=== PATIENT | male | born 1980 | race African-American/Black ===

== ENCOUNTER 2017-09-26 18:03 | Inpatient (IN) | END 2017-09-28 18:51 | disposition home or self-care (01) | DRG 639 ==

== ENCOUNTER 2018-11-04 22:30 | Emergency (ER) | payer OTHER ==
[~2018-11-04] VITALS: Ht 182.9 cm; Wt 97.7 kg
[~2018-11-04 22:30] MED LIST: FENO48TA4 PO; GLIP5TAB13 PO; LANT3I SC
[2018-11-04 22:41] VITALS: Ht 182.9 cm; Wt 97.7 kg
--- NOTE | 2018-11-04 23:06 | ERD ---
ER Documentation Chief Complaint Chief Complaint RA81; HBP XDAY WITH BELL; STATES HX OF HTN; UNDER STRESS-MOTHER RECENTLY HPI 38-year-old gentleman with a history of essential hypertension who is been compliant with his blood pressure medications. The patient notes that over the last several days he has had elevated blood pressure despite compliance with his medication. Yesterday evening he had a mild headache that was diffuse and gradu al in onset. The headache is now resolved. He denies any chest pain shortness of breath nausea or diaphoresis. He states that he has been under significant amount of stress recently with the passing of his mother. The patient is additionally decreased his exercise regimen for similar reasons. Currently the patient is asymptomatic. He has noted his blood pressure in the 200s o ccasionally but has been checking his blood pressure greater than 6 times per day. He states that regularly it is in the 140 range. Currently again he denies any headache chest pain or shortness of breath. ROS All systems reviewed and are negative except as per history of present illness. Medications Home Meds Active Scripts Insulin Glargine* (Lantus*) 100 Unit/Ml Soln, 26 UNIT SC DAILY@20, #1 BOTTLE 2 Refills Prov:EDITH ORTEGA S. 09/28/17 Glipizide* (Glipizide*) 5 Mg Tablet, 5 MG PO AC BREAKFAST DINNER, #60 TAB 4 Refills Prov:EDITH ORTEGA S. 09/28/17 Fenofibrate Nanocrystallized* (Fenofibrate*) 48 Mg Tablet, 48 MG PO DAILY for 30 Days, #30 TAB 4 Refills Prov:EDITH ORTEGA S. 09/28/17 Allergies Allergies: Coded Allergies: No Known Allergy (Unverified , 09/26/17) PMhx/Soc History of Surgery: No (Pt denies any history) Anesthesia Reaction: No Hx Neurological Disorder: No Hx Respiratory Disorders: No Hx Cardiac Disorders: Yes (HTN ) Hx Psychiatric Problems: No Hx Miscellaneous Medical Probl: No Hx Alcohol Use: No Hx Substance Use: No Hx Tobacco Use: No FmHx Family History: No diabetes Physical Exam Vitals Vital Signs Date Temp Pulse Resp B/P (MAP) Pulse Ox O2 O2 Flow FiO2 Time Delivery Rate 11/04/18 71 17 180/103 100 Room Air 23:02 (128) 11/04/18 98.0 80 15 204/118 97 22:41 (146) Physical Exam General: Well developed, well nourished, no acute distress Head: Normocephalic, atraumatic. Eyes: Pupils equally reactive, EOM intact ENT: Moist mucous membranes Neck: Supple, no lymphadenopathy Respiratory: Lungs clear bilaterally, no distress Cardiovascular: RRR, no murmurs, rubs, or gallops Abdominal: Soft, non-tender, non-distended, no peritoneal signs : Deferred MSK: No edema, no unilateral swelling, 5/5 strength Neurologic: Alert and oriented, moving all extremities, normal speech, no focal weakness, no cerebellar signs Skin: No rash Psych: Normal mood Procedures/MDM The patient presents with asymptomatic hypertensive urgency. With a period of time and watchful waiting the patient's blood pressure is decreasing appropriately into the 180 range. Based on the patient's recent social stressors, decreased exercise this is likely the clear trigger. The patient is additionally checking his blood pressure at increased frequency all likely contributing to the elevated numbers. At this time however the patient exhibits no signs or symptoms concerning for endorgan dysfunction. This is not consistent with hypertensive emergency. Patient is asymptomatic. The risks of rapidly lowering the blood pressure at this time outweigh any benefits. I discussed this and my reasoning with the patient. He is agreeable. We discussed keeping a blood pressure log 3 times daily and discussing with his primary care physician for possibly titrating his blood pressure medications. At this point no indication for laboratory testing or advanced imaging. Patient was given reassurance and can be safely discharged. The patient does not have an identifiable emergent medical condition that warrants inpatient hospitalization at this time. The patient is deemed safe for discharge with outpatient follow-up. We discussed follow up with the patient's primary care doctor within 24 to 48 hours as needed. We also discussed return to the emergency room for worsening symptoms or worsening condition. Outpatient referral: None required Discharge Medications: None required Departure Diagnosis: Primary Impression: Asymptomatic hypertensive urgency Condition: Stable Patient Instructions: Hypertension, Established, Out Of Control Additional Instructions: Do not take your blood pressure more than 3 times a day. Keep a blood pressure log and discuss with your primary care physician to possibly adjust your medication. Return to the emergency room for elevated blood pressure and signs of a stroke including severe headache, muscle weakness, slurred speech or signs of a heart attack including chest pain, nausea and vomiting. ELIA HOLLAND MD Nov 04, 2018 23:06
[2018-11-04 23:12] VITALS: BP 167/101; PULSE 67; RESP 17
== END 2018-11-04 23:24 | disposition home or self-care (01) ==
LOC: E/R 22:30
DX: I16.0 Hypertensive urgency (principal); I10 Essential (primary) hypertension
CPT/HCPCS: 93005; Z7502

== ENCOUNTER 2018-11-06 23:16 | Emergency (ER) | payer OTHER ==
[~2018-11-06] VITALS: Ht 182.9 cm; Wt 98.7 kg
[2018-11-06 23:24] VITALS: Ht 182.9 cm; Wt 98.7 kg
[2018-11-07] MEDS ORDERED: NICARDipine HCL 30 MG CAPSULE PO ONE
[2018-11-07 01:35] VITALS: BP 172/90; PULSE 65; RESP 18
--- NOTE | 2018-11-07 02:04 | ERD ---
ER Documentation Chief Complaint Chief Complaint BIB RA 881 W/ C/O HIGH BP AT HOME HPI 38-year-old male is presenting to the emergency department complaining of hypertensive episode at home today. He states his blood pressure was roughly 190/100. He denies any symptoms at this time. Denies any blurry vision, dipl opia, chest pain, shortness of breath, hematuria, abdominal pain, or other symptoms at this time. No other complaints currently. He took his benazepril this morning. ROS All systems reviewed and are negative except as per history of present illness. Medications Home Meds Active Scripts Insulin Glargine* (Lantus*) 100 Unit/Ml Soln, 26 UNIT SC DAILY@20, #1 BOTTLE 2 Refills Prov:JORDAN,EDITH S. 09/28/17 Glipizide* (Glipizide*) 5 Mg Tablet, 5 MG PO AC BREAKFAST DINNER, #60 TAB 4 Refills Prov:RAHI,EDITH S. 09/28/17 Fenofibrate Nanocrystallized* (Fenofibrate*) 48 Mg Tablet, 48 MG PO DAILY for 30 Days, #30 TAB 4 Refills Prov:RAHI,EDITH S. 09/28/17 Allergies Allergies: Coded Allergies: No Known Allergy (Unverified , 09/26/17) PMhx/Soc History of Surgery: No (Pt denies any history) Anesthesia Reaction: No Hx Neurological Disorder: No Hx Respiratory Disorders: No Hx Cardiac Disorders: Yes (HTN ) Hx Psychiatric Problems: No Hx Miscellaneous Medical Probl: No Hx Alcohol Use: No Hx Substance Use: No Hx Tobacco Use: No Smoking Status: Never smoker FmHx Family History: No diabetes Physical Exam Vitals Vital Signs Date Temp Pulse Resp B/P (MAP) Pulse Ox O2 O2 Flow FiO2 Time Delivery Rate 11/07/18 98.9 65 18 172/90 99 01:35 (117) 11/07/18 188/103 00:54 (131) 11/06/18 97.9 78 21 198/95 99 23:24 (129) Physical Exam Const: No acute distress Head: Atraumatic Eyes: Normal Conjunctiva ENT: Normal External Ears, Nose and Mouth. Neck: Full range of motion. No meningismus. Resp: Clear to auscultation bilaterally Cardio: Regular rate and rhythm, no murmurs Skin: No petechiae or rashes Back: No midline or flank tenderness Ext: No cyanosis, or edema Neur: Awake and alert Psych: Normal Mood and Affect Results 24 hrs Current Medications Medications Dose Sig/Gigi Start Time Status Last (Trade) Ordered Route PRN Stop Time Admin Dose Reason Admin Nicardipine 30 mg ONCE ONCE 11/07/18 DC 11/07/18 HCl PO 00:00 00:02 (Cardene) 11/07/18 00:01 Procedures/MDM 38-year-old male presents emergency department for hypertension. Patient's initial blood pressure in the department [id number]/95 which lowered to 172/90 after administration of Cardene 30 mg p.o. No evidence of hypertensive urgency or hyp ertensive emergency. Patient is nontoxic and well-appearing. I doubt CVA, TIA, intracranial hemorrhage, or other emergency. Patient advised to return for any new or worsening or concerning symptoms. Shared my medical decision making the patient and he understands and agrees with the plan. Patient's blood pressure was elevated (>120/80) but appears stable without evidence of hypertension emergency or urgency. The patient is to follow-up and pursue outpatient monitoring and therapy with their primary care physician within 1 week and return immediately if they have any new, worsening, or concerning symptoms. I discussed this case with attending ED physician, Dr. Chip Mathis who stated patient was stable for discharge and further outpatient management. . Departure Diagnosis: Primary Impression: Hypertension Condition: Fair Patient Instructions: High Blood Pressure (Hypertension) Referrals: [facility] (PCP) Additional Instructions: Call your primary care doctor TOMORROW for an appointment during the next 1-2 days.See the doctor sooner or return here if your condition worsens before your appointment time. CHIP ALLEN PA-C Nov 07, 2018 02:04
== END 2018-11-07 01:35 | disposition home or self-care (01) ==
LOC: FTE 23:16
DX: I10 Essential (primary) hypertension (principal); Z79.84 Long term (current) use of oral hypoglycemic drugs
CPT/HCPCS: Z7502; Z7610; 99283

== ENCOUNTER 2018-11-07 22:50 | Emergency (ER) | payer OTHER ==
[~2018-11-07] VITALS: Ht 182.9 cm; Wt 98.2 kg
[2018-11-07 22:54] VITALS: Ht 182.9 cm; Wt 98.2 kg
--- NOTE | 2018-11-08 03:35 | ERD ---
ER Documentation Chief Complaint Chief Complaint int htn, seen here for same last 2 days. PMD f/u on Monday. no CP/SOB HPI Is a 38-year-old male comes in with elevation in blood pressure. He seen for the similar complaints for the past 2 days. Denies she fevers chills nausea vomiting denies chest pain or shortness of breath. Denies any current complaints. ROS All systems reviewed and are negative except as per history of present illness. Medications Home Meds Active Scripts Insulin Glargine* (Lantus*) 100 Unit/Ml Soln, 26 UNIT SC DAILY@20, #1 BOTTLE 2 Refills Prov:RADARYL KRISHNAMURTHYEEP S. 09/28/17 Glipizide* (Glipizide*) 5 Mg Tablet, 5 MG PO AC BREAKFAST DINNER, #60 TAB 4 Refills Prov:RARAGHU,EDITH S. 09/28/17 Fenofibrate Nanocrystallized* (Fenofibrate*) 48 Mg Tablet, 48 MG PO DAILY for 30 Days, #30 TAB 4 Refills Prov:RARAGHUEDITH S. 09/28/17 Allergies Allergies: Coded Allergies: No Known Allergy (Unverified , 09/26/17) PMhx/Soc History of Surgery: No (Pt denies any history) Anesthesia Reaction: No Hx Neurological Disorder: No Hx Respiratory Disorders: No Hx Cardiac Disorders: Yes (HTN ) Hx Psychiatric Problems: No Hx Miscellaneous Medical Probl: No Hx Alcohol Use: No Hx Substance Use: No Hx Tobacco Use: No Smoking Status: Never smoker Physical Exam Vitals Vital Signs Date Temp Pulse Resp B/P (MAP) Pulse Ox O2 O2 Flow FiO2 Time Delivery Rate 11/08/18 90 212/103 02:00 (139) 11/08/18 89 182/105 01:27 (130) 11/07/18 99.7 85 16 204/108 99 22:54 (140) Physical Exam Const: No acute distress Head: Atraumatic Eyes: Normal Conjunctiva ENT: Normal External Ears, Nose and Mouth. Neck: Full range of motion. No meningismus. Resp: Clear to auscultation bilaterally Cardio: Regular rate and rhythm, no murmurs Abd: Soft, non tender, non distended. Normal bowel sounds Skin: No petechiae or rashes Back: No midline or flank tenderness Ext: No cyanosis, or edema Neur: Awake and alert Psych: Normal Mood and Affect Results 24 hrs Current Medications Medications Dose Sig/Gigi Start Time Status Last (Trade) Ordered Route PRN Stop Time Admin Dose Reason Admin Clonidine 0.2 mg ONCE ONCE 11/08/18 DC 11/08/18 (Catapres) PO 02:30 02:34 11/08/18 02:31 Procedures/MDM Patient's blood pressure was elevated (>120/80) but appears stable without evidence of hypertension emergency or urgency. The patient was counseled about the risks of hypertension and urged to pursue outpatient monitoring and therapy within a week with their primary care physician. Departure Diagnosis: Primary Impression: Hypertension Hypertension type: unspecified Qualified Codes: I10 - Essential (primary) hypertension Condition: Stable NAHUN MICHAEL Nov 08, 2018 03:35
[2018-11-08 04:18] VITALS: BP 147/98; PULSE 60; RESP 16
== END 2018-11-08 04:18 | disposition home or self-care (01) ==
LOC: E/R 22:50
DX: I10 Essential (primary) hypertension (principal)
CPT/HCPCS: Z7502; Z7610; 99283